=== PATIENT | female | born 1965 | race Caucasian/White ===

== ENCOUNTER 2025-05-07 13:02 | Outpatient (CLI) | payer OTHER | END 2025-05-07 13:03 | disposition home or self-care (01) | LOC: CSHULT 13:02 | PROVIDERS: ATTEND Internal Medicine Interventional Cardiology | DX: I48.3 Typical atrial flutter (principal); R42 Dizziness and giddiness; I35.8 Other nonrheumatic aortic valve disorders; I11.9 Hypertensive heart disease without heart failure | CPT/HCPCS: 93306; 93880 ==